=== PATIENT | female | born 2000 | race Caucasian/White ===

== ENCOUNTER 2022-02-01 22:17 | Inpatient (IN) | payer MEDICAID ==
[~2022-02-01] VITALS: Ht 162.6 cm; Wt 127.0 kg
[2022-02-01 22:40] VITALS: BP 113/77
--- NOTE | 2022-02-01 22:45 | NUR ---
TO LOBBY A/W BED AMBULATORY
[2022-02-02] MEDS ORDERED: VANCOMYCIN 1,000 MG in DEXTROSE 5% 250 ML IV ONE (01:20)
--- NOTE | 2022-02-02 01:21 | NUR ---
PT TO BED 11
[2022-02-02] MEDS ORDERED: VANCOMYCIN 1,000 MG VIAL ONE (01:36)
--- NOTE | 2022-02-02 01:37 | NUR ---
PATIENT AMBULATED TO WITH STEADY GAIT.
--- NOTE | 2022-02-02 01:40 | NUR ---
URINE COLLECTED AND HANDED TO LAB
--- NOTE | 2022-02-02 01:43 | NUR ---
SWAB COLLECTED AND HANDED TO LAB
--- NOTE | 2022-02-02 01:50 | NUR ---
MED REC COMPLETE
[2022-02-02 01:58] LABS: BASOPHILS % (AUTO) 0.6 % (0.0-2.0); EOSINOPHILS # (AUTO) 0.1 K/uL (0-0.4); EOSINOPHILS % (AUTO) 1.1 % (0.0-4.0); HEMATOCRIT 40.2 % (36-48); HEMOGLOBIN 12.9 g/dL (12.0-16.0); LYMPHOCYTES # (AUTO) 2.7 K/uL (2.5-16.5); LYMPHOCYTES % (AUTO) 38.6 % (20.5-51.1); MEAN CORPUSCULAR HEMOGLOBIN 26 pg (27-31); MEAN CORPUSCULAR HGB CONC 32 g/dL (33-37); MEAN CORPUSCULAR VOLUME 80.7 fL (80-94); MONOCYTES # (AUTO) 0.8 K/uL (0.8-1.0); MONOCYTES % (AUTO) 11.4 % (1.7-9.3); NEUTROPHILS # (AUTO) 3.4 K/uL (1.8-7.7); NEUTROPHILS % (AUTO) 48.3 % (42.2-75.2); PLATELET COUNT (AUTO) 282 K/uL (140-450); RED BLOOD CELL COUNT(AUTO) 4.98 MIL/uL (4.20-5.40); RED CELL DISTRIBUTION WIDTH 16.6 % (11.6-13.7)
[2022-02-02 03:07] LABS: ANION GAP 8.6 (8-16); CARBON DIOXIDE 26.4 mmol/L (21-32); CREATININE 0.9 mg/dL (0.6-1.3); TOTAL BILIRUBIN 0.2 mg/dL (0.0-1.0)
--- NOTE | 2022-02-02 03:17 | NUR ---
PATIENT AMBULATED TO WITH STEADY GAIT.
--- NOTE | 2022-02-02 05:21 | NUR ---
Spoke to pharmacy, solumedrol and rocephin orders clarified
[2022-02-02] MEDS ORDERED: cefTRIAXone 1,000 MG VIAL ONE (06:26)
--- NOTE | 2022-02-02 07:18 | NUR ---
Report given to Omar ELLISON
--- NOTE | 2022-02-02 07:45 | NUR ---
PT WAS BROUGHT FROM THE ED VIA GURNEY AND WAS ABLE TO AMBULATE TO BEDSIDE INDEPENDENTLY WITH STEADY GAIT. RECEIVED REPORT FROM ED NURSE REBECCA FOR CONTINUITY OF CARE, PT IN STABLE CONDITION. PT DENIES ANY PAIN OR DISTRESS AT THIS TIME.
--- NOTE | 2022-02-02 07:53 | NUR ---
Patient will be admitted to care of benito DOE. Admitted to telemetry. Will go to room 104B. Belongings list completed. Report to Tangela ELLISON.
[2022-02-02 08:00] VITALS: BP 134/84
--- NOTE | 2022-02-02 08:30 | NUR ---
MEDICATED PT WITH SCHEDULED SOLUMEDROL, PT DENIES ANY PAIN OR ITCHING TO FACE.
[2022-02-02] MEDS ORDERED: methylPREDNISolone SS 40 MG in WATER STERILE 1 ML IV SCH (09:00)
[2022-02-02] MEDS ORDERED: methylPREDNISolone SS 40 MG/ML VIAL IVP SCH (09:00)
--- NOTE | 2022-02-02 10:30 | NUR ---
PT VISUALLY ASSESSED, NO SIGNS OF PAIN OR DISTRESS AT THIS TIME.
[2022-02-02] MEDS ORDERED: ACYC400T14 PO (12:23)
[2022-02-02] MEDS ORDERED: CEPH-588 PO (12:23)
--- NOTE | 2022-02-02 12:30 | NUR ---
PT VISUALLY ASSESSED, NO SIGNS OF PAIN OR DISTRESS AT THIS TIME.
[2022-02-02 14:27] VITALS: BP 134/84
--- NOTE | 2022-02-02 15:00 | NUR ---
REVIEWED AND DISCUSSED DISCHARGE INSTRUCTIONS AND PAPERWORK WITH PT. PT VERBALIZED UNDERSTANDING AND SIGNED ALL FORMS. PT WAS ABLE TO AMBULATE TO [facility], TRANSPORTED HOME VIA POV.
== END 2022-02-02 15:27 | disposition home or self-care (01) | DRG 383 ==
LOC: MED 22:17 → MTU 02-02 04:20
DX: L03.213 Periorbital cellulitis (principal); E87.1 Hypo-osmolality and hyponatremia; K13.0 Diseases of lips; B02.9 Zoster without complications; Z20.822 Contact with and (suspected) exposure to COVID-19; E66.9 Obesity, unspecified; Z68.42 Body mass index [BMI] 45.0-49.9, adult
CPT/HCPCS: 36415; 80053; 83605; 85025; 87040; 96365; 96367; 99285; J0696; J2920; J3370; J7030; J7060